=== PATIENT | female | born 1975 | race Two or more races ===

== ENCOUNTER 2021-08-19 13:48 | Outpatient (CLI) | payer SELFPAY ==
--- NOTE | 2021-08-19 13:15 | EMB_PTH ---
PATIENT: ISABEL BUTTS LOC: [facility] U#:[id number] AGE/SX: 46/F ROOM: RE08/19/[address]: Dr. Jozef Oconnor MD : 1975 BED: DIS: 08/19/2021 SPEC #: [id number] RECD: 08/19/21 14:03 STATUS: SUKHI KINGSLEY #: [id number] ABBY: 08/19/21 13:[address]: Jozef Oconnor DEPT: SURGICAL PATHOLOGY RECD BY: Celena Flores Tissues: Endometrium, NOS Procedures: Surgery Specimen Level IV HEADER OPERATION: Endometrial biopsy PRE-OP DIAGNOSIS: N92.5, N92.6 TISSUE SUBMITTED: Endometrial biopsy MICROSCOPIC DIAGNOSIS Endometrial biopsy: Fragments of benign endocervical epithelium and blood. See comment. CHERRY:everardo 08/21/2021 COMMENT Endometrial is not identified in the submitted specimen. The specimen predominantly consists of blood. Clinical correlation and appropriate follow up are necessary. MICROSCOPIC DESCRIPTION Slides are reviewed. GROSS DESCRIPTION Received in fixative is one container labeled with the patient's name and designated EMB. The specimen consists of multiple fragments of hemorrhagic soft tissue that in aggregate measure 3 x 2.5 x 0.2 cm. The specimen is totally submitted in one cassette. / CHERRY:everardo 08/20/2021 TC: Cannot code CPT: [id number]
[2021-08-21 14:21] LABS: HPV Reflexed? NOT INDICATED
== END 2021-08-19 23:59 | disposition short-term general hospital (02) ==
LOC: LABSPEC 13:50
PROVIDERS: Visit Provider Obstetrics & Gynecology
DX: Z12.4 Encounter for screening for malignant neoplasm of cervix (principal); N92.5 Other specified irregular menstruation; N92.6 Irregular menstruation, unspecified
CPT/HCPCS: 88175; 88305; G0145